=== PATIENT | female | born 1965 | race Caucasian/White ===

== ENCOUNTER → 2020-07-24 | Outpatient (CLI) | payer MEDICARE ==
--- NOTE | 2020-07-25 07:02 | US ---
EXAMINATION TYPE: US thyroid st tissue head/neck DATE OF EXAM: 07/24/2020 COMPARISON: NONE CLINICAL HISTORY: E04.1 thyroid nodule. Thyroid nodule, history of thyroid FNA, patient on thyroid me ds GLAND SIZE: Right Lobe: 5.0 x 2.2 x 2.3 cm Overall Parenchyma: homogenous Left Lobe: 4.5 x 1.6 x 1.1 cm Overall Parenchyma: homogeneous Isthmus Thickness: 0.3 cm NODULES RIGHT: # of nodules measured on right: 1 1. 3.0 X 1.9 x 2.2 cm mid pole solid or almost completely solid, hypoechoic nodule, which is wider than tall, with smooth margins, without echogenic foci. Prior size: no previous LEFT: # of nodules measured on left: 0 ISTHMUS: # of nodules measured in the isthmus: 0 Bilateral neck scanned, no evidence of lymphadenopathy. Dominant 3.0 cm right thyroid nodule. IMPRESSION: As above. Findings should be correlated with old outside imaging and sampling.
== END | disposition home or self-care (01) ==
LOC: RADUSWWP 15:47
PROVIDERS: ATTEND Family Medicine
DX: E04.1 Nontoxic single thyroid nodule (principal)
CPT/HCPCS: 76536

== ENCOUNTER → 2022-04-10 | Outpatient (CLI) | payer MEDICARE ==
[2022-04-10 11:02] VITALS: BP 163/92; PULSE 98; RESP 17; TEMP 97
--- NOTE | 2022-04-10 11:23 | P.GSHP ---
History of Present Illness H&P Date: 04/10/22 Chief Complaint: pleomorphic lobular carcioma Alda is a 56 year old white female seen in consultation for DR. Mayfield regarding left breast cancer. The patient felt a lump in her breast in December, and had a mammogram in January. She did not seek care sooner as her father in December and she was busy with family obligations. This was her first mammogram since 2016. She then had an ultrasound and biopsy of a lesion in her breast and under her left arm. [place] [id number]. This revealed a lobulated mass in the posterior superior left breast with associated left breast skin thickening and abnormal-appearing left axillary lymph node. No lesions of concern were noted in the right breast. This led to an ultrasound of the left breast performed on the same date which revealed a 5.9 x 4.5 cm mass at the 12 o'clock position 4 cm from the nipple. Additionally there were multiple abnormal appearing enlarged left axillary lymph nodes the largest measuring 2.9 x 2.5 cm. Diffuse left breast skin thickening was noted as well. Consideration of inflammatory breast cancer was made. The breast skin has gotten thicker and the nipple has become inverted. 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, contracted oral HPV) painful takes 1 oral 100 mg capsule morphine diabetes Social History: nicotine: stopped 1998 alcohol: rare drugs: marijuana gummies occasional - Constitutional Constitutional: Denies chills, Denies fever - EENT Eyes: denies blurred vision, denies pain Ears: deny: decreased hearing, tinnitus Ears, nose, mouth and throat: Denies headache, Denies sore throat - Breasts Breasts: bilateral: as per HPI - Cardiovascular Cardiovascular: Reports shortness of breath, Denies chest pain - Respiratory Respiratory: Denies cough, Denies 7 - Gastrointestinal Gastrointestinal: Denies abdominal pain, Denies diarrhea, Denies nausea, Denies vomiting - Genitourinary (Female) Genitourinary: Denies dysuria, Denies hematuria - Menstruation Menstruation: Reports postmenopausal - Musculoskeletal Musculoskeletal: Reports as per HPI - Integumentary Comment: psoriasis on palms and feet Integumentary: Denies pruritus, Denies rash - Neurological Neurological: Reports numbness - Psychiatric Psychiatric: Reports anxiety, Denies depression - Endocrine Comment: diabetes - Hematologic/Lymphatic Comment: none - Allergic/Immunologic Allergic/Immunologic: Reports as per HPI, Reports seasonal allergies Medications and Allergies Allergies Allergy/AdvReac Type Severity Reaction Status Date / Time ampicillin Allergy Wheezing Unverified 04/10/22 10:57 cephalexin [From Keflex] Allergy Wheezing Unverified 04/10/22 10:57 ciprofloxacin Allergy Swelling Unverified 04/10/22 10:57 doxycycline Allergy Swelling Unverified 04/10/22 10:57 Surgical - Exam BMI: 36 - General moderate distress - Eyes normal ocular movement - ENT no hearing loss - Neck trachea midline - Respiratory normal respiratory effort, clear to auscultation - Cardiovascular Rhythm: regular Heart Sounds: normal: S1, S2 - Abdomen Abdomen: soft, non tender, no guarding, no rigid, no rebound - Integumentary normal turgor - Neurologic no disoriented, no combative - Musculoskeletal normal gait - Psychiatric oriented to time, oriented to person, oriented to place, speech is normal, memory intact Breast Exam: BRA: 42C inspection: Left breast nipple inversion, puckering and thickening of the skin of the left breast, right breast grade 2/3 ptosis Palpation: Right breast: Multi-positional exam no dominant masses or nodules of concern Right axilla: No adenopathy of concern Left breast: Multi-positional exam mass up proximally 17 cm from the upper chest wall extending down below the nipple. Thickening of the skin, the lesion does not appear to be fixed to the chest wall Left axilla: Firmness in the axilla extending from the breast into the axilla question of this is fixed Results mammogram not available at this time; pathology reviewed Assessment and Plan Assessment: Impression: 1. 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 Question left axillary node involvement 3. Diabetes 4. Sternal costoclavicular hyperostosis/ painful treat with morphine 5. No plaques in her neck secondary to pain Plan: 1. appointment with medical oncology 2. PET scan 3. presentation of case at tumor board CC: DR. Mayfield
== END ==
LOC: WWCWWP 10:25
PROVIDERS: ATTEND Surgery
DX: C50.212 Malignant neoplasm of upper-inner quadrant of left female breast (principal); E11.9 Type 2 diabetes mellitus without complications; Z88.1 Allergy status to other antibiotic agents

== ENCOUNTER → 2022-04-19 | Outpatient (CLI) | payer MEDICARE ==
--- NOTE | 2022-04-20 09:59 | PE ---
EXAMINATION TYPE: PET CT fusion skull to thigh DATE OF EXAM: 04/19/2022 CLINICAL INDICATION:Female, 56 years old with history of C50.212; TECHNIQUE: Following the intravenous administration of 11.5 mCi of F-18 FDG, whole body images are performed from the skull base to the midthigh. Images are reviewed on the computer in the coronal, a xial, and sagittal planes. Reconstructed rotating images are created on independent workstation and reviewed on the computer. A non-contrast CT is performed in conjunction with the PET scan. Glucose level 173 mg/dL COMPARISON: MR breast MRI same day, PET/CT None, FINDINGS: Mediastinal SUV mean is 1.4. Hepatic parenchyma SUV mean is 2.2. SKULL BASE AND NECK: No suspicious FDG activity. CHEST, MEDIASTINUM, AND HILAR REGION: Left breast mass max SUV 16.7 measuring 6.0 x 4.5 x 6.1 cm. Scattered metastatic disease including, * left pectoralis major and minor max SUV 11.4, * Left axillary lymph nodes max SUV 7.9 measuring up to 3.4 cm. * Left supraclavicular lymph nodes max SUV 7.1 measuring 8 mm. * Mediastinal lymphadenopathy with FDG activity with max SUV 8.4 right low paratracheal, prevascular space max SUV 8.9 ABDOMEN AND PELVIS: No suspicious FDG activity. OSSEOUS STRUCTURES: Abnormal asymmetric sclerosis of the left clavicle with expansion without increas ed FDG activity. Additional sclerosis of the left first rib without increased FDG activity. Focal abnormal FDG activity within the L3 vertebral body with max SUV 4.8. OTHER CT: Right thyroid nodule measuring up to 19 mm. The gallbladder is surgically absent. Heart is mildly enlarged. Excreted IV contrast is seen within the renal collecting system. IMPRESSION: Left breast mass with metastatic disease to the left supraclavicular region, left axilla, left anteri or chest wall muscles, and mediastinum. A L3 vertebral body abnormal activity is also concerning for metastatic deposit.
== END | disposition home or self-care (01) ==
LOC: RADPETMAIN 07:28
PROVIDERS: ATTEND Surgery
DX: C50.212 Malignant neoplasm of upper-inner quadrant of left female breast (principal)
CPT/HCPCS: 78815; A9552

== ENCOUNTER → 2022-04-19 | Outpatient (CLI) | payer MEDICARE ==
--- NOTE | 2022-04-21 11:44 | BMR ---
EXAMINATION TYPE: MR breast BILAT wo/w con DATE OF EXAM: 04/19/2022 COMPARISON: Outside mammogram and ultrasound. Same day PET/CT. March 13, 2022 HISTORY: Breast cancer, history of biopsy. TECHNIQUE: A series of fat and water weighted images in the long and short axis views of both breasts are obtained in conjunction with dynamic contrast MRI with subtraction technique. The patient was i njected with 10 mL intravenous Gadavist gadolinium contrast. Three-dimensional and additional postp rocessing imaging is created on independent workstation and reviewed during official interpretation o f this study. FINDINGS: Corresponding to most recent imaging studies there is asymmetric increased skin thickening and trabecular edema throughout the left breast. Background heterogeneous fibroglandular tissue is re demonstrated bilaterally. Multiple abnormal enlarged left axillary lymph nodes are redemonstrated ext ending to posterior to the pectoralis minor muscle. Delayed dynamic imaging shows no definitive abnor mal intramammary adenopathy. With regards to the right breast no abnormal skin thickening is identified. No pathologic enhancement or enhancing masses are seen. Chest wall is intact. With regards to the left breast there is a large heterogeneous enhancing mass centered upper inner qu adrant measuring near 5.5 cm craniocaudal dimension coronal image 23 x 5.6 x 5.6 cm axial image 136 s eries 801. Findings consistent with biopsy-proven malignancy. There are numerous smaller satellite no dules inferiorly extending towards the level of the nipple which is inverted. Smaller multicentric sa tellite enhancing masses are identified, there are abnormal enhancing lesions extending towards the s ternum also noted. There are innumerable abnormal left axillary lymph nodes including one with mass e ffect on the pectoralis muscle likely invading post contrast image 172 series 801 measuring 2.9 x 2.4 cm corresponding to sagittal image 38. Corresponding to recent PET CT there are abnormal enhancing prominent lymph nodes in the anterior sup erior mediastinum noted. IMPRESSION: Findings consistent with inflammatory carcinoma of the left breast with diffuse and multi centric involvement. There is marked abnormal left axillary adenopathy noted. Abnormal thoracic lymph nodes are also noted seen better on recent PET/CT. No MRI evidence for invasive malignancy in the ri ght breast. BI-RADS 6 biopsy-proven cancer left breast. Recommendation: Appropriate surgical and oncologic management.
== END | disposition home or self-care (01) ==
LOC: RADMRIMAIN 08:27
PROVIDERS: ATTEND Internal Medicine Hematology & Oncology
DX: C50.112 Malignant neoplasm of central portion of left female breast (principal)
CPT/HCPCS: C8908; A9585; 77049

== ENCOUNTER → 2022-05-13 | Outpatient (CLI) | payer MEDICARE ==
--- NOTE | 2022-05-14 15:59 | BD ---
EXAMINATION TYPE: Axial Bone Density DATE OF EXAM: 05/13/2022 COMPARISON: 12/02/2011 CLINICAL HISTORY: 56 years year old Female. ICD-10 CODE: C50.112 Breast ca Height: 66.5 Weight: 233 RISK FACTORS HISTORY OF: Surgery to Spine: C4-C6 FUSED When: 2002 Family History of Osteoporosis: YES MOTHER Active: NO Postmenopausal woman: 51 MEDICATIONS: Thyroid Medications: Which medication: Levothyroxine How Lon YRS Additional Medications: MORPHINE, HBP,VIT D3 , CALCUIM, VIT B12,CHOLESTEROL,DIABETES MED Additional History: CHEMO NOW BREAST CANCER EXAM MEASUREMENTS: Bone mineral densitometry was performed using the [employer] System. Bone mineral density as measured about the Lumbar spine is: ----- L1-L4(G/cm2): 1.708 T Score Values are as follows: ----- L1: 4.1 ----- L2: 3.1 ----- L3: 5.3 ----- L4: 4.7 ----- L1-L4: 4.4 Bone mineral density has: Increased 11.5% since study of: 12/02/2011 Bone mineral density about the R hip (g/cm2): 1.399 Bone mineral density about the L hip (g/cm2): 1.378 T Score values are as follows: -----R Neck: 2.6 -----L Neck: 2.4 -----R Total: 2.8 -----L Total: 2.9 Bone mineral density has: Increased 8.9% since study of: 12/02/2011 FRAX%s: The graph provided illustrates a 3.7 chance for a major osteoporotic fx and a 0.0 chance for the hips probability for fx in 10 years time. IMPRESSION: Normal (Values between +1 and -1 indicate normal bone mass). Consider repeating this study in 5 year s or sooner if there is some new clinical indication. NOTE: T-SCORE=SD OF THE YOUNG ADULT MEAN.
== END | disposition home or self-care (01) ==
LOC: RADBDWWP 11:19
PROVIDERS: ATTEND Internal Medicine Hematology & Oncology
DX: C50.112 Malignant neoplasm of central portion of left female breast (principal)
CPT/HCPCS: 77080

== ENCOUNTER → 2022-10-02 | Outpatient (CLI) | payer MEDICARE ==
--- NOTE | 2022-10-03 07:28 | BMR ---
EXAMINATION TYPE: MR breast BILAT wo/w con DATE OF EXAM: 10/02/2022 COMPARISON: Prior MRI bilateral breast and PET/CT April 19, 2022 HISTORY: Left sided Breast cancer, history of interval chemotherapy. TECHNIQUE: A series of fat and water weighted images in the long and short axis views of both breasts are obtained in conjunction with dynamic contrast MRI with subtraction technique. The patient was i njected with 10 mL intravenous Gadavist gadolinium contrast. Three-dimensional and additional postp rocessing imaging is created on independent workstation and reviewed during official interpretation o f this study. REFERENCE: Reference FINDINGS: There is persistent asymmetric increased skin thickening and trabecular edema in the left b reast but this is improved from prior MRI. Background heterogeneous fibroglandular tissue is redemons trated bilaterally. Prior visualized Multiple abnormal enlarged left axillary lymph nodes are signifi cantly improved from prior study without residual greater than 1.0 cm axillary adenopathy. There is n ew artifact from Mediport catheter along the posterior right chest wall. With regards to the right breast no abnormal skin thickening is identified. No new pathologic enhance ment or enhancing masses are seen. Chest wall is intact. With regards to the left breast there are 2 residual areas of enhancement. There is residual 7 x 5 mm focus of enhancement slightly inner aspect image 848 series 701 and oval 6 x 5 mm enhancing lesion j ust posterior superior and medial to this on image 804 series 701. Marked interval improvement from p rior study. Persistent edema within the left pectoralis muscle but this is improved from prior study. No abnormal enhancement this level on current study. Corresponding to recent PET CT prior abnormal enhancing prominent lymph nodes in the anterior superio r mediastinum are now not clearly identified. IMPRESSION: Marked positive treatment response to large left breast neoplasm and adenopathy as detail ed above. No MRI evidence for invasive malignancy in the right breast. BI-RADS 6 biopsy-proven cancer left breast. Recommendation: Continued Appropriate surgical and oncologic management.
== END | disposition home or self-care (01) ==
LOC: RADMRIMAIN 08:25
PROVIDERS: ATTEND Internal Medicine Hematology & Oncology
DX: C50.112 Malignant neoplasm of central portion of left female breast (principal); R59.0 Localized enlarged lymph nodes
CPT/HCPCS: C8908; A9585; 77049

== ENCOUNTER → 2022-10-16 | Outpatient (CLI) | payer MEDICARE ==
[2022-10-16 13:04] VITALS: BP 125/78; PULSE 75; RESP 17; TEMP 98
--- NOTE | 2022-10-16 13:38 | P.PN ---
Subjective Progress Note Date: 10/16/22 Principal diagnosis: pleomorphic lobular left breast cancer stage IIB pleomorphic lobular carcioma Alda is a 56 year old white female seen in consultation for DR. Mayfield regarding left breast cancer. The patient felt a lump in her breast in December 2021, and had a mammogram in January. She did not seek care sooner as her father in December and she was busy with family obligations. This was her first mammogram since 2016. She then had an ultrasound and biopsy of a lesion in her breast and under her left arm. She had a bilateral mammogram on . This revealed a lobulated mass in the posterior superior left breast with associated left breast skin thickening and abnormal-appearing left axillary lymph node. No lesions of concern were noted in the right breast. This led to an ultrasound of the left breast performed on the same date which revealed a 5.9 x 4.5 cm mass at the 12 o'clock position 4 cm from the nipple. Additionally there were multiple abnormal appearing enlarged left axillary lymph nodes the largest measuring 2.9 x 2.5 cm. Diffuse left breast skin thickening was noted as well. Consideration of inflammatory breast cancer was made. The breast skin had gotten thicker and the nipple has become inverted. A PET CT was done on 04-19-22 which showed stable disease to the left supraclavicular region, left axilla,, left anterior chest wall muscles, and mediastinum. In the L3 vertebral body had abnormal activity as well. The patient subsequently underwent neoadjuvant chemotherapy, and will be starting Perjeta and Herceptin next week. Saw the radiation oncologist on [phone] and discussion was entertained about radiation therapy at some point in her treatment plan. [place] [address]. This revealed marked positive treatment response to the left breast neoplasia and adenopathy. No MRI evidence for invasive malignancy was noted in the right breast. 2 spots of residual disease were noted in the left breast a 7 x 5 mm focus as well as a 6 x 5 mm focus just posterior and superior to this. Persistent edema within the left pectoralis muscle was noted but this was improved from prior study. The patient does not feel anything of concern in her breast. Prior to the neoadjuvant treatment she underwent core biopsy of an axillary mass as well as 12 o'clock position left breast. Both revealed invasive poorly differentiated mammary carcinoma [place] [address]. Caffeine: 1/day nicotine: none stopped 2002; used to smoke 1/2 ppd for 8 years chocolate: daily BCP: 12 years stopped 1998 Family History: maternal grandfather: colon cancer paternal grandfather: stomah and esophogeal cancer Hormonal History: menarche: 14 , breast fed: yes, age at first : 32 menopause: 51 Surgical History: right knee replacement two herniated disc in nck gallbladder port a cath placed right chest Medical History: Sterno costoclavicular hyper-ostosis ( was on embral for 7 years, contracted oral HPV) painful takes 1 oral 100 mg capsule morphine diabetes Social History: nicotine: stopped 1998 alcohol: rare drugs: marijuana gummies occasional - Constitutional Constitutional: Denies chills, Denies fever - EENT Eyes: denies blurred vision, denies pain Ears: deny: decreased hearing, tinnitus Ears, nose, mouth and throat: Denies headache, Denies sore throat - Breasts Breasts: bilateral: as per HPI - Cardiovascular Cardiovascular: Reports shortness of breath, Denies chest pain - Respiratory Respiratory: Denies cough - Gastrointestinal Gastrointestinal: Denies abdominal pain, Denies diarrhea, Denies nausea, Denies vomiting - Genitourinary (Female) Genitourinary: Denies dysuria, Denies hematuria - Menstruation Menstruation: Reports postmenopausal - Musculoskeletal Musculoskeletal: Reports as per HPI - Integumentary Comment: psoriasis on palms and feet Integumentary: Denies pruritus, Denies rash - Neurological Neurological: Reports numbness - Psychiatric Psychiatric: Reports anxiety, Denies depression - Endocrine Comment: diabetes - Hematologic/Lymphatic Comment: none - Allergic/Immunologic Allergic/Immunologic: Reports as per HPI, Reports seasonal allergies Medications and Allergies Allergies Allergy/AdvReac Type Severity Reaction Status Date / Time ampicillin Allergy Wheezing Unverified 04/10/22 10:57 cephalexin [From Keflex] Allergy Wheezing Unverified 04/10/22 10:57 ciprofloxacin Allergy Swelling Unverified 04/10/22 10:57 doxycycline Allergy Swelling Unverified 04/10/22 10:57 Assessment and Plan Assessment: Impression: 1. 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 Question left axillary node involvement 3. Diabetes 4. Sternal costoclavicular hyperostosis/ painful treat with morphine 5. No plaques in her neck secondary to pain Plan: 1. appointment with medical oncology 2. PET scan 3. presentation of case at tumor board CC: DR. Mayfield Additional CC's: Aurora Mayfield Objective - Vital Signs Vital signs: Vital Signs Temp 98.0 F 10/16/22 13:01 Pulse 75 10/16/22 13:01 Resp 17 10/16/22 13:01 BP 125/78 10/16/22 13:01 Pulse Ox 99 10/16/22 13:01 FiO2 Intake & Output 10/15/22 10/16/22 10/16/22 18:59 06:59 18:59 Weight 100.698 kg - Constitutional General appearance: Present: cooperative - EENT Eyes: Present: EOMI ENT: Present: hearing grossly normal - Neck Neck: Present: normal ROM - Respiratory Respiratory: bilateral: CTA - Cardiovascular Rhythm: regular Heart sounds: normal: S1, S2 - Gastrointestinal General gastrointestinal: Present: soft - Integumentary Integumentary: Present: normal turgor - Musculoskeletal Musculoskeletal: Present: gait normal - Psychiatric Psychiatric: Present: A&O x's 3, appropriate affect, intact judgment & insight - Additional findings Additional findings: Breast Exam: BRA: 42C inspection: Bilateral grade 2 ptosis Palpation: Right breast: Multi-positional exam no dominant masses or nodules of concern Right axilla: No adenopathy of concern Left breast: Multi-positional exam mass up proximally Left axilla: no adenoppathy of concern Assessment and Plan Assessment: Impression: 1. 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 Diabetes 4. Sternal costoclavicular hyperostosis/ painful treat with morphine 5. She most recent MRI performed on reviewed with Dr. Augustine from radiology two questionable spots in the left breast Plan: 1. Discuss case with medical oncology 2. re-presentation of case at tumor board CC: DR. Mayfield
== END ==
LOC: WWCWWP 12:44
PROVIDERS: ATTEND Surgery
DX: C50.912 Malignant neoplasm of unspecified site of left female breast (principal); E11.9 Type 2 diabetes mellitus without complications; D16.7 Benign neoplasm of ribs, sternum and clavicle; Z88.1 Allergy status to other antibiotic agents

== ENCOUNTER → 2022-11-11 | Outpatient (CLI) | payer MEDICARE ==
[2022-11-11 15:47] LABS: Basophils # (A) 0.03 X 10*3/uL (0.00-0.10); Basophils % (A) 0.4 %; Eosinophils # (A) 0.21 X 10*3/uL (0.04-0.35); Eosinophils % (A) 2.8 %; HCT 36.7 % (37.2-46.3); HGB 11.6 g/dL (12.0-15.0); Immature Grans, Automated 0.3 %; Lymphocytes # (A) 1.88 X 10*3/uL (0.90-5.00); Lymphocytes % (A) 24.6 %; MCHC 31.6 g/dL (32.0-37.0); MCV 88.4 fL (80.0-97.0); Mean Platelet Volume 10.6 fL (9.5-12.2); Monocytes # (A) 0.43 X 10*3/uL (0.20-1.00); Monocytes % (A) 5.6 %; NRBC Per 100 WBC 0 /100 WBCS (0.0-0.0); Neutrophils # (A) 5.06 X 10*3/uL (1.80-7.70); Neutrophils % (A) 66.3 %; Platelet Count 260 X 10*3/uL (140-440); RBC 4.15 X 10*6/uL (4.10-5.20); RDW 13.9 % (11.5-14.5); WBC 7.63 X 10*3/uL (4.50-10.00)
[2022-11-11 16:26] LABS: ALT 9 U/L (8-44); AST 19 U/L (13-35); African American GFR (CKD) 96.2 (60.0-200.0); Albumin 3.9 g/dL (3.8-4.9); Albumin/Globulin Ratio 1.63 (1.60-3.17); Alkaline Phosphatase 114 U/L (41-126); BUN/Creat Ratio 17.88 Ratio (12.00-20.00); Blood Urea Nitrogen 14.3 mg/dL (9.0-27.0); Calcium 9.1 mg/dL (8.7-10.3); Carbon Dioxide 33.9 mmol/L (20.0-27.5); Chloride 98 mmol/L (96-109); Chol/HDL Ratio 2.77 Ratio; Globulin 2.4 g/dL (1.6-3.3); Glucose 132 mg/dL (70-110); Potassium 3.8 mmol/L (3.5-5.5); Sodium 143 mmol/L (135-145); Total Protein 6.3 g/dL (6.2-8.2); VLDL Calculation 17.34 mg/dL (5.00-40.00)
[2022-11-11 23:30] LABS: Microalbumin Creatinine Ratio <30 mg/g Creat (0-30)
== END | disposition home or self-care (01) ==
LOC: LABWHC1 11:19
PROVIDERS: ATTEND Family Medicine
DX: E11.65 Type 2 diabetes mellitus with hyperglycemia (principal); F33.0 Major depressive disorder, recurrent, mild
CPT/HCPCS: 36415; 80053; 80061; 82043; 82570; 83036; 84443; 85025

== ENCOUNTER → 2022-11-19 | Outpatient (CLI) | payer MEDICARE ==
--- NOTE | 2022-11-19 14:52 | XR ---
EXAMINATION TYPE: XR chest 2V DATE OF EXAM: 11/19/2022 COMPARISON: Chest x-ray September 11, 2022 HISTORY: Presurgical study. TECHNIQUE: Frontal and lateral views of the chest are obtained. FINDINGS: Stable right internal jugular Mediport catheter. There is no suspicious focal air space [place], pleural effusion, or pneumothorax seen. The cardiac silhouette size is stable and within salomon l limits. Surgical change to the cervical spine is redemonstrated. IMPRESSION: No acute cardiopulmonary process on current exam.
== END | disposition home or self-care (01) ==
LOC: RADXRMAIN 14:32
PROVIDERS: ATTEND Family Medicine
DX: Z01.818 Encounter for other preprocedural examination (principal); R07.9 Chest pain, unspecified
CPT/HCPCS: 71046

== ENCOUNTER → 2022-11-28 | Outpatient (CLI) | payer MEDICARE ==
--- NOTE | 2022-11-29 11:49 | PE ---
EXAMINATION TYPE: PET CT fusion skull to thigh DATE OF EXAM: 11/28/2022 CLINICAL INDICATION:Female, 57 years old with history of C50.112; TECHNIQUE: Following the intravenous administration of 10.2 mCi of F-18 FDG, whole body images are performed from the skull base to the midthigh. Images are reviewed on the computer in the coronal, a xial, and sagittal planes. Reconstructed rotating images are created on independent workstation and reviewed on the computer. A non-contrast CT is performed in conjunction with the PET scan. Glucose level 198 mg/dL COMPARISON: CT None, PET/CT 04/20/2022, FINDINGS: Mediastinal SUV mean is 2.0. Hepatic parenchyma SUV mean is 2.5. SKULL BASE AND NECK: No suspicious FDG activity. CHEST, MEDIASTINUM, AND HILAR REGION: Left breast mass has decreased in size and FDG activity max SUV 4.5, previously 16.7 measuring 3.0 x 1.7, previously 5.6 x 3.9 cm Scattered metastatic disease including, * left pectoralis major and minor is no longer visualized. * There is decrease in volume of lymphadenopathy along the chest wall just deep to the pectoralis mi nor muscle. Few scattered small lymph nodes are present with increased FDG activity more medially max SUV 7.2 measuring 6 mm in short axis. Previously up to 13 mm in short axis max SUV 9.4. * Axillary lymph nodes largest measuring 13 mm in short axis max SUV 5.1 previously 6.9. * Resolution of mediastinal lymphadenopathy seen on prior. Fissures mediastinal lymph nodes visualiz ed on today's exam. ABDOMEN AND PELVIS: No suspicious FDG activity. OSSEOUS STRUCTURES: Abnormal asymmetric sclerosis of the left clavicle with expansion without increas ed FDG activity. Additional sclerosis of the left first rib without increased FDG activity. Focal abnormal FDG activity within the L3 vertebral body with max SUV 2.[address]: Right thyroid nodule measuring up to 19 mm. The gallbladder is surgically absent. Heart is mildly enlarged. Excreted IV contrast is seen within the renal collecting system. IMPRESSION: Elevated blood glucose on this exam could result in artificially low metabolic activity which limits evaluation for small metastatic foci. 1. Positive response to therapy with decrease in volume and FDG activity of the left breast mass, le ft axillary lymphadenopathy, left chest wall lymphadenopathy and mediastinal lymphadenopathy metastat ic foci. There remains FDG activity within the left breast mass, left chest wall lymph nodes and, lef t axillary lymph nodes. Resolution of mediastinal adenopathy with FDG activity. 2. FDG activity within the L3 vertebral body skull to be indeterminate with decrease in FDG activity on today's exam.
== END | disposition home or self-care (01) ==
LOC: RADPETMAIN 10:59
PROVIDERS: ATTEND Internal Medicine Hematology & Oncology
DX: C50.112 Malignant neoplasm of central portion of left female breast (principal); C77.3 Secondary and unspecified malignant neoplasm of axilla and upper limb lymph nodes; C77.1 Secondary and unspecified malignant neoplasm of intrathoracic lymph nodes
CPT/HCPCS: 78815; A9552

== ENCOUNTER → 2023-04-03 | Outpatient (CLI) | payer MEDICARE ==
--- NOTE | 2023-04-03 18:11 | CA ---
Transthoracic Echo Report Name: Alda Rivera Age: 57 Gender: F : 1965 Exam Date: 04/03/2023 15:01 Exam Location: [facility] Ht (in): 67 Wt (lb): 224 Ordering Physician: Sumit Lilly MD Attending/Referring Phys: Inside Wirer Tammy Singleton [facility] Procedure CPT: Indications: Z01.818 PREPROCEDURAL EXAMINATION Cardiac Hx: Technical Quality: Technically difficult study Contrast 1: Total Dose (mL): Contrast 2: Total Dose (mL): MEASUREMENTS (Male / Female) Normal Values 2D ECHO LV Diastolic Diameter PLAX 5.2 cm 4.2 - 5.9 / 3.9 - 5.3 cm LV Systolic Diameter PLAX 3.7 cm IVS Diastolic Thickness 1.0 cm 0.6 - 1.0 / 0.6 - 0.9 cm LVPW Diastolic Thickness 0.9 cm 0.6 - 1.0 / 0.6 - 0.9 cm LV Relative Wall Thickness 0.4 LVOT Diameter 2.0 cm LV Diastolic Volume MOD BP 83.9 cm??? 67 - 155 / 56 - 104 cm??? LV Systolic Volume MOD BP 31.9 cm??? 22 - 58 / 19 - 49 cm??? LV Ejection Fraction MOD BP 61.9 % >= 55 % LV Cardiac Index MOD BP 1582.9 cm???/min???m??? LV Diastolic Volume MOD 4C 73.5 cm??? LV Systolic Volume MOD 4C 29.6 cm??? LV Ejection Fraction MOD 4C 59.7 % LV Cardiac Index MOD 4C 1336.1 cm???/min???m??? LV Diastolic Length 4C 7.7 cm LV Systolic Length 4C 6.1 cm LV Diastolic Volume MOD 2C 94.2 cm??? LV Systolic Volume MOD 2C 32.8 cm??? LV Ejection Fraction MOD 2C 65.2 % LV Cardiac Index MOD 2C 1871.3 cm???/min???m??? LV Diastolic Length 2C 7.9 cm LV Systolic Length 2C 6.4 cm Ascending Aorta Diameter 2.8 cm M-MODE Aortic Root Diameter MM 2.4 cm LA Systolic Diameter MM 3.7 cm LA Ao Ratio MM 1.5 AV Cusp Separation MM 2.1 cm DOPPLER AV Peak Velocity 133.7 cm/s AV Peak Gradient 7.1 mmHg AV Mean Velocity 96.1 cm/s AV Mean Gradient 4.1 mmHg AV Velocity Time Integral 30.1 cm LVOT Peak Velocity 113.6 cm/s LVOT Peak Gradient 5.2 mmHg LVOT Velocity Time Integral 24.0 cm LVOT Stroke Volume 78.7 cm??? LVOT Stroke Volume Index 37.1 ml/m??? LVOT Cardiac Index 2399.0 cm???/min???m??? AV Area Cont Eq vti 2.6 cm??? AV Area Cont Eq pk 2.8 cm??? Mitral E Point Velocity 84.4 cm/s Mitral A Point Velocity 84.4 cm/s Mitral E to A Ratio 1.0 MV Deceleration Time 321.1 ms LV E' Lateral Velocity 10.0 cm/s Mitral E to LV E' Lateral Ratio 8.4 LV E' Septal Velocity 9.1 cm/s Mitral E to LV E' Septal Ratio 9.3 TR Peak Velocity 204.9 cm/s TR Peak Gradient 16.8 mmHg Right Atrial Pressure 3.0 mmHg Pulmonary Artery Systolic Pressu 19.8 mmHg Right Ventricular Systolic Press 21.8 mmHg FINDINGS Left Ventricle Mildly increased left ventricular wall thickness. Left ventricular cavity size normal. Normal left ventricular systolic function with no obvious regional wall motion abnormalities. Left ventricular ejection fraction is estimated at 55- 60%. Right Ventricle Right ventricle not well visualized. Right Atrium Normal right atrial size. Left Atrium Normal left atrial size. Mitral Valve Structurally normal mitral valve. Trace mitral regurgitation. Aortic Valve Trileaflet aortic valve. No aortic valve stenosis or regurgitation. Tricuspid Valve Structurally normal tricuspid valve. Trace to mild tricuspid regurgitation. Pulmonic Valve Pulmonic valve not well visualized. Pericardium No pericardial effusion. Aorta Normal size aortic root and proximal ascending aorta. CONCLUSIONS 1. Normal left ventricle size and systolic function 2. Trace mitral with trace to mild tricuspid regurgitation Previewed by: Dr. Scott Winchester MD (Electronically Signed) Final Date: 03 April 2023 18:10
== END | disposition home or self-care (01) ==
LOC: RADECHMAIN 14:54
PROVIDERS: ATTEND Internal Medicine Hematology & Oncology
DX: Z01.818 Encounter for other preprocedural examination (principal); C50.112 Malignant neoplasm of central portion of left female breast; R21 Rash and other nonspecific skin eruption; L66.4 Folliculitis ulerythematosa reticulata; E78.5 Hyperlipidemia, unspecified
CPT/HCPCS: 93306

== ENCOUNTER 2023-05-19 13:26 | Emergency (ER) | payer MEDICARE ==
--- NOTE | 2023-05-19 14:15 | ED ---
Abdominal Pain HPI - General Source: patient, RN notes reviewed Mode of arrival: ambulatory Limitations: no limitations <Mark Damon - Last Filed: 05/19/23 14:13> - General Source: patient, RN notes reviewed Mode of arrival: ambulatory Limitations: no limitations <Tanvir Piedra - Last Filed: 05/19/23 17:56> - General Chief Complaint: Abdominal Pain Stated Complaint: constipation Time Seen by Provider: 05/19/23 14:13 - History of Present Illness Initial Comments: 57-year-old female presents emergency Department with chief complaint constipation. Patient states that she is on pain meds, chemotherapy for breast cancer. Patient states that the chemo seems to be causing constipation. Patient states she is taking medications to help with her but it is not getting any relief. Patient has had recent lab work with PCP patient's had a prior cholecystectomy. (Mark Damon) Patient is a pleasant 57-year-old female presenting to the emergency department with concerns for constipation. Last bowel movement was about 10 days ago. Patient has decreased appetite. Patient is tolerating fluids. Patient has nausea without vomiting. Patient is on chemotherapy secondary to history of breast cancer. Patient chronically is on morphine. Patient has some abdominal cramping. (Tanvir Piedra) - Related Data Home Medications Medication Instructions Recorded Confirmed Cyanocobalamin [Vitamin B-12] 1,000 mcg PO DAILY 04/10/22 02/04/23 Cyclobenzaprine [Flexeril] 10 mg PO BID PRN 04/10/22 02/04/23 DULoxetine HCL [Cymbalta] 120 mg PO HS 04/10/22 02/04/23 Gabapentin 900 mg PO HS 04/10/22 02/04/23 Ibuprofen [Motrin] 800 mg PO TID PRN 04/10/22 02/04/23 Insulin Glargine/Lixisenatide 60 unit SQ DAILY 04/10/22 02/04/23 [Soliqua 100 Unit-33 Mcg/ml Pen] Levothyroxine Sodium [Synthroid] 175 mcg PO DAILY 04/10/22 02/04/23 Morphine Sulfate ER [Ms Contin] 100 mg PO DAILY 04/10/22 02/04/23 Simvastatin [Zocor] 20 mg PO DAILY 04/10/22 02/04/23 Turmeric Root Extract [Turmeric] 500 mg PO DAILY 04/10/22 02/04/23 atenoloL 25 mg PO DAILY 04/10/22 02/04/23 hydroCHLOROthiazide 25 mg PO DAILY 04/10/22 02/04/23 Repaglinide [Prandin] 4 mg PO BID 08/20/22 02/04/23 Cholecalciferol [Vitamin D3 (125 125 mcg PO DAILY 09/11/22 02/04/23 Mcg = 5000 Iu)] Lidocaine-Prilocaine Cream [Emla 1 applic TOPICAL DAILY PRN 09/11/22 02/04/23 Cream 2.5%/2.5%] ondansetron HCL [Zofran] 8 mg PO 5XD PRN 09/11/22 02/04/23 oxyCODONE-APAP 10-325MG [Percocet 1 tab PO DAILY PRN 09/11/22 02/04/23 10-325 mg] Calcium Carbonate [Calcium] 600 mg PO DAILY 10/16/22 02/04/23 Ferrous Sulfate [Iron (65 MG 325 mg PO DAILY 10/16/22 02/04/23 Elemental)] Previous Rx's Medication Instructions Recorded Acetaminophen Tab [Tylenol] 650 mg PO Q6HR PRN tab 09/15/22 Potassium Chloride ER [K-Dur 20] 20 meq PO BID 30 Days #60 tab 09/15/22 Allergies Allergy/AdvReac Type Severity Reaction Status Date / Time ciprofloxacin Allergy Swelling Verified 05/19/23 13:32 doxycycline Allergy Swelling Verified 05/19/23 13:32 Review of Systems ROS Other: All systems not noted in ROS Statement are negative. <Mark Damon - Last Filed: 05/19/23 14:13> ROS Other: All systems not noted in ROS Statement are negative. Constitutional: Denies: fever Eyes: Denies: eye pain ENT: Denies: ear pain Respiratory: Denies: dyspnea Cardiovascular: Denies: chest pain Gastrointestinal: Reports: as per HPI, constipation Musculoskeletal: Denies: back pain Neurological: Denies: weakness <Tanvir Piedra - Last Filed: 05/19/23 17:56> ROS Statement: Those systems with pertinent positive or pertinent negative responses have been documented in the HPI. Past Medical History Past Medical History: Cancer, Diabetes Mellitus, Hyperlipidemia, Hypertension, Musculoskeletal Disorder, Skin Disorder Additional Past Medical History / Comment(s): breast cancer/sternocostoclavicular hyperostosis/hypothyroid/psoriasis History of Any Multi-Drug Resistant Organisms: None Reported Past Surgical History: Cholecystectomy, Joint Replacement, Orthopedic Surgery Additional Past Surgical History / Comment(s): rt knee replacement/cervical dissection/fusion c4-6, Left Mastectomy and right breast reduction - December 02,2 023 Past Anesthesia/Blood Transfusion Reactions: No Reported Reaction Past Psychological History: No Psychological Hx Reported Smoking Status: Former smoker Past Alcohol Use History: None Reported Past Drug Use History: None Reported <aMrk Damon - Last Filed: 05/19/23 14:13> General Exam Limitations: no limitations <Mark Damon - Last Filed: 05/19/23 14:13> Limitations: no limitations General appearance: alert, in no apparent distress Head exam: Present: normocephalic Eye exam: Present: normal appearance Neck exam: Present: normal inspection Respiratory exam: Present: normal lung sounds bilaterally Cardiovascular Exam: Present: regular rate, normal rhythm GI/Abdominal exam: Present: soft, tenderness (Mild tenderness lower abdomen), normal bowel sounds. Absent: distended, guarding, rebound, rigid, pulsatile mass Rectal exam: Present: normal inspection, other (Minimal stool in the rectal vault. RN is present.) Extremities exam: Present: normal inspection Neurological exam: Present: alert Psychiatric exam: Present: normal affect, normal mood Skin exam: Present: normal color <Tanvir Piedra - Last Filed: 05/19/23 17:56> - General Exam Comments Initial Comments: Visual Physical Exam Vital signs reviewed General: Well-appearing, nontoxic, no acute distress. Head: Normocephalic, atraumatic Eyes: PERRLA, EOMI ENT: Airway patent Chest: Nonlabored breathing Skin: No visual rash, normal skin tone Neuro: Alert and oriented 3 Musculoskeletal: No gross abnormalities (Mark Damon) Course Vital Signs 05/19/23 13:30 Temperature 97.6 F Pulse Rate 61 Respiratory 20 Rate Blood Pressure 122/66 O2 Sat by Pulse 99 Oximetry Medical Decision Making <Mark Damon - Last Filed: 05/19/23 14:13> <Tanvir Piedra - Last Filed: 05/19/23 17:56> - Medical Decision Making I completed the quick note portion of this chart signed Mark Damon PA-C (Mark Damon) Was pt. sent in by a medical professional or institution (VERNON Piña, MECHANICAL DESIGN TECHNICIAN, urgent care, hospital, or longterm...) When possible be specific @ -No Did you speak to anyone other than the patient for history (EMS, parent, family, police, friend...)? What history was obtained from this source @ -No Did you review nursing and triage notes (agree or disagree)? Why? @ -I reviewed and agree with nursing and triage notes Were old charts reviewed (outside hosp., previous admission, EMS record, old EKG, old radiological studies, urgent care reports/EKG's, longterm records)? Report findings @ -No old charts were reviewed Differential Diagnosis (chest pain, altered mental status, abdominal pain women, abdominal pain men, vaginal bleeding, weakness, fever, dyspnea, syncope, headache, dizziness, GI bleed, back pain, seizure, CVA, palpatations, mental health, musculoskeletal)? @ -Differential Abdominal Pain Women: Appendicitis, Cholecystitis, diverticulosis, ischemic bowel, pancreatitis, hepatitis, UTI, gastroenteritis, AAA, incarcerated hernia, bowel obstruction, constipation, inflammatory bowel, hepatitis, peptic ulcer disease, splenic infarction, perforated viscus, vulvitis, ovarian torsion, PID, kidney stone, placenta abruption, this is not meant to be an all-inclusive list EKG interpreted by me (3pts min.). @ -As above X-rays interpreted by me (1pt min.). @ -Abdominal x-rays shows some air-fluid levels. No obvious obstruction. CT interpreted by me (1pt min.). @ -None done U/S interpreted by me (1pt. min.). @ -None done What testing was considered but not performed or refused? (CT, X-rays, U/S, labs)? Why? @ -None What meds were considered but not given or refused? Why? @ -None Did you discuss the management of the patient with other professionals (professionals i.e. VERNON Piña, MECHANICAL DESIGN TECHNICIAN, lab, RT, psych nurse, social studies teacher, undercutter operator, teacher, annual giving officer, catalytic case operator)? Give summary @ -No Was smoking cessation discussed for >3mins.? @ -No Was critical care preformed (if so, how long)? @ -No Were there social determinants of health that impacted care today? How? (Homelessness, low income, unemployed, alcoholism, drug addiction, transportation, low edu. Level, literacy, decrease access to med. care, custodial, rehab)? @ -No Was there de-escalation of care discussed even if they declined (Discuss DNR or withdrawal of care, Hospice)? DNR status @ -No What co-morbidities impacted this encounter? (DM, HTN, Smoking, COPD, CAD, Cancer, CVA, ARF, Chemo, Hep., AIDS, mental health diagnosis, sleep apnea, morbid obesity)? @ -None Was patient admitted / discharged? Hospital course, mention meds given and route, prescriptions, significant lab abnormalities, going to OR and other pertinent info. @ -Patient did have 2 large bowel movements following an enema and is feeling much better and requesting discharge. Undiagnosed new problem with uncertain prognosis? @ -No Drug Therapy requiring intensive monitoring for toxicity (Heparin, Nitro, Insulin, Cardizem)? @ -No Were any procedures done? @ -No Diagnosis/symptom? @ -Constipation Acute, or Chronic, or Acute on Chronic? @ -Acute Uncomplicated (without systemic symptoms) or Complicated (systemic symptoms)? @ -default Side effects of treatment? @ -No Exacerbation, Progression, or Severe Exacerbation? @ -No Poses a threat to life or bodily function? How? (Chest pain, [place], [place], pneumonia, PE, COPD, DKA, ARF, appy, cholecystitis, CVA, Diverticulitis, Homicidal, Suicidal, threat to staff... and all critical care pts) @ -No (Tanvir Piedra) Disposition <Mark Damon - Last Filed: 05/19/23 14:13> Is patient prescribed a controlled substance at d/c from ED?: No Time of Disposition: 17:56 <Tanvir Piedra - Last Filed: 05/19/23 17:56> Clinical Impression: Constipation Disposition: HOME SELF-CARE Condition: Stable Instructions (If sedation given, give patient instructions): Constipation (ED), High Fiber Diet (ED) Additional Instructions: Please do follow-up with your primary care physician and oncologist in the next couple days for recheck. Return for fever, unable to have bowel movement, vomiting, abdominal pain, worsening symptoms or other concerns Referrals: Aurora Mayfield MD [Primary Care Provider] - 1-2 days
--- NOTE | 2023-05-19 14:27 | XR ---
EXAMINATION TYPE: XR KUB DATE OF EXAM: 05/19/2023 Comparison: Correlation PET/CT 11/28/2022 Clinical History: 57-year-old female Constipation Findings: Partially visualized distal aspect of the injection catheter at the superior cavoatrial junction. Lesley pect some stringy atelectasis in the lower lungs. No evidence for free intraperitoneal air. No dilated small bowel. Small air-fluid levels throughout the colon suggests some scattered liquid st ool. Mild overall small burden. Cholecystectomy clips. No dilated small bowel loops. Air extends distally to the rectum. Numerous left-sided pelvic phleboliths. Impression: 1. Scattered small air-fluid levels throughout the colon suggests some liquid stool. Mild overall sto ol wording. 2. No evidence for bowel obstruction or free air.
[2023-05-19 19:47] VITALS: BP 106/65; PULSE 82; RESP 18; TEMP 98.6
== END 2023-05-19 18:16 | disposition home or self-care (01) ==
LOC: EC 13:26
DX: K59.00 Constipation, unspecified (principal); E11.9 Type 2 diabetes mellitus without complications; I10 Essential (primary) hypertension; E03.9 Hypothyroidism, unspecified; E78.5 Hyperlipidemia, unspecified; Z79.4 Long term (current) use of insulin; Z79.890 Hormone replacement therapy; Z87.891 Personal history of nicotine dependence; Z79.899 Other long term (current) drug therapy; Z88.8 Allergy status to other drugs, medicaments and biological substances; Z88.1 Allergy status to other antibiotic agents
CPT/HCPCS: 74018; 99284

== ENCOUNTER → 2024-01-07 | Outpatient (CLI) | payer MEDICARE ==
--- NOTE | 2024-01-10 15:41 | PE ---
EXAMINATION TYPE: PET CT fusion skull to thigh DATE OF EXAM: 01/07/2024 COMPARISON: No recent pertinent CT Prior PET/CT: 11/28/2022 HISTORY: Breast cancer TECHNIQUE: Following the intravenous administration of 10.48 mCi of F-18 FDG, whole body images are performed from the skull base to the midthigh. Images are reviewed on the computer in the coronal, a xial, and sagittal planes. Reconstructed rotating images are created on independent workstation and reviewed on the computer. A localization and attenuation correction CT is performed in conjunction with the PET scan. DLP: 892.14 mGycm SCAN: Subsequent Blood glucose: 156 mg/dL Average Mediastinum SUV: 2.75 Average Liver SUV: 2.4 FINDINGS: NECK: No abnormal uptake suspicious for malignancy. There is focal muscular uptake of the subscapula ris musculature on the right. This has an appearance of muscular activity. THORAX: There are a pair of focal hyperintensities within the subcutaneous tissue anterior to the pec toralis muscle, image 81, SUV 2.72 medially into 0.56 laterally. Inflammatory changes favored. Correl ate for any recent intervention in this region such as a port. ABDOMEN: No abnormal uptake. Liver appears to have a heterogenous appearance. PELVIS: No abnormal uptake OSSEOUS STRUCTURES: No abnormal uptake LOCALIZATION CT: There is been a left mastectomy COMPARISON: Previous left axillary adenopathy uptake has resolved. There has been interval mastectomy . IMPRESSION: 1. Focal uptake within the subcutaneous tissues superior left chest likely inflammatory in nature. 2. No suspicious focal radiotracer accumulation to suggest recurrent or metastatic disease
== END | disposition home or self-care (01) ==
LOC: RADPETMAIN 08:47
PROVIDERS: ATTEND Internal Medicine Hematology & Oncology
DX: C50.112 Malignant neoplasm of central portion of left female breast (principal)
CPT/HCPCS: 78815; A9552

== ENCOUNTER → 2024-08-01 | Outpatient (CLI) | payer MEDICARE ==
[2024-08-01 17:47] LABS: Basophils # (A) 0.06 X 10*3/uL (0.00-0.10); Basophils % (A) 0.8 %; Eosinophils # (A) 0.14 X 10*3/uL (0.04-0.35); Eosinophils % (A) 1.8 %; HCT 43.3 % (37.2-46.3); HGB 13.6 g/dL (12.0-15.0); Lymphocytes # (A) 1.96 X 10*3/uL (0.90-5.00); Lymphocytes % (A) 24.7 %; MCH 28.3 pg (27.0-32.0); MCHC 31.4 g/dL (32.0-37.0); MCV 90.2 FL (80.0-97.0); Mean Platelet Volume 12.3 FL (9.5-12.2); Monocytes # (A) 0.41 X 10*3/uL (0.20-1.00); Monocytes % (A) 5.2 %; NRBC Per 100 WBC 0 X 10*3/uL (0.00-0.01); Neutrophils # (A) 5.32 X 10*3/uL (1.80-7.70); Neutrophils % (A) 67.1 %; Platelet Count 267 X 10*3/uL (140-440); RDW 12.8 % (11.5-14.5); WBC 7.92 X 10*3/uL (4.50-10.00)
[2024-08-01 22:35] LABS: BUN/Creat Ratio 13.75 Ratio (12.00-20.00); Blood Urea Nitrogen 16.5 mg/dL (9.0-27.0); Chloride 89 mmol/L (96-109); Chol/HDL Ratio 2.33 Ratio; Glucose 339 mg/dL (70-110); LDL Cholesterol,Calculated 69.6 mg/dL (0.0-131.0); Potassium 3.9 mmol/L (3.5-5.5); Sodium 138 mmol/L (135-145)
[2024-08-01 22:36] LABS: ALT 21 U/L (8-44); AST 35 U/L (13-35); Albumin 4.3 g/dL (3.8-4.9); Albumin/Globulin Ratio 1.43 Ratio (1.60-3.17); Alkaline Phosphatase 165 U/L (41-126); Calcium 9.5 mg/dL (8.7-10.3); Carbon Dioxide 34.4 mmol/L (21.6-31.8); T4, Free (Free Thyroxine) 1.67 ng/dL (0.80-1.80); Total Bilirubin 0.8 mg/dL (0.3-1.2); Total Protein 7.3 g/dL (6.2-8.2)
== END | disposition home or self-care (01) ==
LOC: LABWHC1 10:41
PROVIDERS: ATTEND Internal Medicine Geriatric Medicine
DX: Z00.00 Encounter for general adult medical examination without abnormal findings (principal)
CPT/HCPCS: 36415; 80053; 80061; 82043; 82570; 83036; 84439; 84443; 85025